=== PATIENT | female | born 1995 | race Caucasian/White ===

== ENCOUNTER → 2020-06-10 | Outpatient (CLI) | payer OTHER ==
[~2020-06-10] MED LIST: ACET325 PO; AMOX500 PO
== END | disposition home or self-care (01) ==
LOC: LAB 17:10 → LAB SHORT 17:10
DX: D48.5 Neoplasm of uncertain behavior of skin (principal); L21.8 Other seborrheic dermatitis; L70.8 Other acne; L81.8 Other specified disorders of pigmentation; L08.9 Local infection of the skin and subcutaneous tissue, unspecified; R21 Rash and other nonspecific skin eruption
CPT/HCPCS: 87070; 87077; 87186; 87205